=== PATIENT | male | born 2000 | race African-American/Black ===

== ENCOUNTER 2021-01-09 14:35 | Emergency (ER) | payer SELFPAY ==
[~2021-01-09] VITALS: Ht 170.2 cm; Wt 64.0 kg
[2021-01-09] MEDS ORDERED: HYDROCODONE/ACETAMINOPHEN 5/325MG TABLET PO STA (15:29)
[2021-01-09] MEDS ORDERED: IBUPROFEN 600MG TABLET PO STA (17:00)
[2021-01-09] MEDS ORDERED: BACITRACIN ZINC OINT UDPKT TOP ONE (17:15)
[2021-01-09] MEDS ORDERED: CEPH500T MT (17:34)
[2021-01-09 17:56] VITALS: BP 110/70
== END 2021-01-09 17:56 | disposition home or self-care (01) ==
LOC: ER 14:35
DX: S82.291D Other fracture of shaft of right tibia, subsequent encounter for closed fracture with routine healing (principal); X58.XXXD Exposure to other specified factors, subsequent encounter
CPT/HCPCS: 99284